=== PATIENT | male | born 1975 | race Caucasian/White ===

== ENCOUNTER 2016-07-06 13:25 | Emergency (ER) | payer OTHER, BC ==
[~2016-07-06] VITALS: Ht 177.8 cm; Wt 90.7 kg
[~2016-07-06 13:25] MED LIST: CYCL10TA9 PO; HYDR1CAP2 PO; TRAM50TA2 PO
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
[2016-07-06] MEDS ORDERED: LIDOCAINE 2% VISCOUS 15 ML UDC ONE (13:38)
[2016-07-06] MEDS ORDERED: BUPR150T14 PO (13:44)
[2016-07-06] MEDS ORDERED: VARE1TAB21 PO (13:44)
[2016-07-06] MEDS ORDERED: LIDOCAINE/EPI 1%-1:100,000 (XYLOCAINE) 20ML INJ ONE (13:45)
[2016-07-06] MEDS ORDERED: LIDOCAINE 2% VISCOUS 15 ML UDC PO ONE (13:45)
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
[2016-07-06] MEDS ORDERED: HYDR-757 PO (15:15)
[2016-07-06] MEDS ORDERED: CHLO473M4 MM (15:15)
[2016-07-06] MEDS ORDERED: AMOX500C2 PO (15:15)
[2016-07-06 15:23] VITALS: BP 155/99
== END 2016-07-06 15:23 | disposition home or self-care (01) ==
LOC: EDUNIT# 13:25 → ER 13:27
DX: S01.511A Laceration without foreign body of lip, initial encounter (principal); V43.52XA Car driver injured in collision with other type car in traffic accident, initial encounter; Y92.414 Local residential or business street as the place of occurrence of the external cause; Y99.8 Other external cause status
CPT/HCPCS: 70450; 70486; 72125; 99283

== ENCOUNTER → 2018-02-07 | Outpatient (CLI) | payer BC ==
[~2018-02-07] MED LIST changes: +AMOX500C2 PO; +BUPR150T14 PO; +CHLO473M4 MM; +HYDR-4226 PO; +VARE1TAB21 PO
--- NOTE | 2018-02-07 12:28 | Diagnostic Imaging Report ---
INDICATION: Hip and back pain. COMPARISON: None. FINDINGS: Two radiographic views of the right hip were obtained. There is no fracture, dislocation, bone destruction, or radiopaque foreign body. The visualized pelvic osseous structures and the SI joints demonstrate no acute fracture or dislocation. There is no bone destruction or radiopaque foreign body. The surrounding soft tissue structures are unremarkable. IMPRESSION: 1. Unremarkable radiographic exam of the right hip. Dictated by: Dictated on workstation # [id number]
--- NOTE | 2018-02-07 12:29 | Diagnostic Imaging Report ---
INDICATION: Back pain. COMPARISON: None FINDINGS: Frontal and lateral views of the lumbar spine were obtained. Alignment and vertebral heights are maintained. There is no fracture or destructive process. No significant degenerative disease is noted in the lumbar spine. Limited views of the abdomen demonstrate nonobstructive bowel gas pattern. IMPRESSION: 1. No acute fracture or dislocation of the lumbar spine. Dictated by: Dictated on workstation # [id number]
== END ==
LOC: RAD 10:43
PROVIDERS: ATTEND Family Medicine
DX: M54.41 Lumbago with sciatica, right side (principal); M25.551 Pain in right hip
CPT/HCPCS: 72100; 73502

== ENCOUNTER → 2020-01-23 | Outpatient (CLI) | payer BC ==
--- NOTE | 2020-01-24 14:35 | NUR ---
Notified of positive COVID test.
== END ==
LOC: LABNPT 06:22
PROVIDERS: ATTEND Family Medicine
DX: U07.1 COVID-19 (principal)
CPT/HCPCS: 87635

== ENCOUNTER 2022-03-06 09:38 | Emergency (ER) | payer SELFPAY ==
[~2022-03-06] VITALS: Ht 177 cm; Wt 113.3 kg
[~2022-03-06 09:38] MED LIST changes: +BUPR-105 PO; -BUPR150T14 PO
--- NOTE | 2022-03-06 09:58 | ED Upper Extremity ---
General Chief Complaint: Laceration Stated Complaint: RT INDEX FINGER LACERATION Source: patient Exam Limitations: no limitations History of Present Illness Date Seen by Provider: Mar 06, 2022 Time Seen by Provider: 09:50 Initial Comments 46-year-old male presents emergency room today for right index finger laceration. Injury just before arrival when he was throwing a lamp away and it broke. No other injury. Unclear when his last tetanus shot was. Allergies and Home Medications Allergies Coded Allergies: No Known Drug Allergies (Unverified , 11/12/10) Patient Home Medication List Home Medication List Reviewed: Yes Amoxicillin (Amoxicillin) 500 Mg Capsule, 500 MG PO TID Prescribed by: EDITA GUEVARA on 07/06/16 1515 Bupropion HCl (Bupropion HCl Sr) 150 Mg Tablet.er, 150 MG PO DAILY, (Reported) Entered as Reported by: GERALD KC on 07/06/16 134 Chlorhexidine Gluconate (Peridex) 473 Ml Mouthwash, 30 ML MM TID Prescribed by: EDITA GUEVARA on 07/06/16 1515 Cyclobenzaprine Hcl (Cyclobenzaprine Hcl) 10 Mg Tablet, 1 EACH PO TID PRN Prescribed by: AKIKO HAY on 12/01/12 1207 Hydrocodone/Acetaminophen (Hydrocodone/Acetaminophen 5 MG/325 MG TAB) 1 Each Tablet, 1 EACH PO Q4H Prescribed by: EDITA GUEVARA on 07/06/16 151 Tramadol Hcl (Tramadol Hcl) 50 Mg Tablet, 50 MG PO Q4H PRN Prescribed by: AKIKO HAY on 12/01/12 1207 Varenicline Tartrate (Chantix) 1 Each Tab.ds.pk, 1 EACH PO DAILY, (Reported) Entered as Reported by: GERALD KC on 07/06/16 1344 Review of Systems Constitutional: no symptoms reported EENTM: no symptoms reported Respiratory: no symptoms reported Cardiovascular: no symptoms reported Gastrointestinal: no symptoms reported Genitourinary: no symptoms reported Musculoskeletal: other (Right index finger laceration) Skin: other (Right index laceration) Psychiatric/Neurological: No Symptoms Reported Past Bjkkylo-Evmjgk-Kvbagv Hx Patient Social History Tobacco Use?: Yes Tobacco type used: Cigarettes Smoking Status: Current Everyday Smoker Substance use?: No Alcohol Use?: Yes Alcohol Frequency: Once in a while Pt feels they are or have been: No Immunizations Up To Date Tetanus Booster (TDap): Less than 5yrs Seasonal Allergies Seasonal Allergies: Yes Past Medical History Orthopedic Reproductive Disorders: No Sexually Transmitted Disease: No Family Medical History Reviewed Nursing Family Hx No Pertinent Family Hx Physical Exam Vital Signs Vital Signs - First Documented 03/06/22 09:54 Temp 36.4 Pulse 113 Resp 20 B/P (MAP) 163/99 (120) Pulse Ox 99 Capillary Refill : Height, Weight, BMI Height: 5'10.00" Weight: 200lbs. oz. [id number]; BMI Method:Stated General Appearance: WD/WN, no apparent distress HEENT: normal ENT inspection, pharynx normal Neck: non-tender, supple Cardiovascular: regular rate, rhythm, no murmur Respiratory: chest non-tender, lungs clear, normal breath sounds, no respiratory distress Gastrointestinal: normal bowel sounds, soft, no organomegaly Shoulder: normal inspection, non-tender, no evidence of injury Elbow/Forearm: normal inspection, non-tender, no evidence of injury Wrist: Yes normal inspection, Yes non-tender, Yes no evidence of injury Hand: laceration (As described above) Neurologic/Psychiatric: no motor/sensory deficits, alert, normal mood/affect, oriented x 3 Skin: other (4 cm curvilinear laceration on the flexor surface of the right index finger just proximal to the PIP. Neurovascular motor and sensory intact. No evidence for tendon involvement throughout range of motion.) Procedures/Interventions Wound's Depth, Shape: sub Q Wound Explored: clean Irrigated w/ Saline (ccs): 500 Betadine Prep?: Yes Anesthesia: 1% Lidocaine Volume Anesthetic (ccs): 5 Suture: Silk Suture Size: 4-0, 5-0 Number of Sutures: 4 Layer Closure?: 1 Sterile Dressing Applied?: Yes Progress/Results/Core Measures Results/Orders My Orders Orders - HEIDY ANAND Pertuss(Acell),Tet Adult (Boostrix (03/06/22 10:00) Lidocaine 1% Inj 20 Ml (Xylocaine 1% Inj (03/06/22 10:00) Vital Signs/I&O 03/06/22 09:54 Temp 36.4 Pulse 113 Resp 20 B/P (MAP) 163/99 (120) Pulse Ox 99 Departure Communication (Admissions) Patient is hemodynamically stable. Simple laceration with no evidence of tende rness or nerve involvement. Discharged in stable condition after local wound care and stitches. No evidence for bony injury, no indication for imaging. Impression Primary Impression: Laceration of right index finger Qualified Codes: S61.210A - Laceration without foreign body of right index finger without damage to nail, initial encounter Disposition: HOME, SELF-CARE Condition: Stable Departure-Patient Inst. Referrals: VIVIANA MATTHEWS MD (PCP/Family) Primary Care Physician Patient Instructions: Laceration Repair With Stitches ED, Wound Care ED Add. Discharge Instructions: Keep the area clean. Shower as normal. Do not submerge it in water such as lakes hot tubs or swimming pools. Have your stitches removed in 10 to 14 days. Return to the emergency department for any redness that spreading to the area or drainage that looks like pus. All discharge instructions reviewed with patient and/or family. Voiced understanding. HEIDY ANAND DO Mar 06, 2022 09:58
[2022-03-06] MEDS ORDERED: LIDOCAINE 1% INJ 20 ML VIAL INJ ONE (10:00)
[2022-03-06] MEDS ORDERED: TETANUS,DIPTH,PERTUSS P/F (BOOSTRIX) 0.5 ML VIAL IM ONE (10:00)
[2022-03-06 10:22] VITALS: BP 163/99
== END 2022-03-06 10:22 | disposition home or self-care (01) ==
LOC: EDUNIT# 09:38 → ER 09:41
DX: S61.210A Laceration without foreign body of right index finger without damage to nail, initial encounter (principal); F17.210 Nicotine dependence, cigarettes, uncomplicated; Z23 Encounter for immunization; W26.8XXA Contact with other sharp object(s), not elsewhere classified, initial encounter
CPT/HCPCS: 12002; 90715